=== PATIENT | male | born 1960 | race Caucasian/White ===

== ENCOUNTER 2023-08-18 10:47 | Emergency (ER) | payer OTHER, SELFPAY ==
[2023-08-18 10:54] VITALS: BP 144/84; PULSE 56; RESP 20; TEMP 36.7; O2SAT 99
--- NOTE | 2023-08-18 11:39 | ED.URI ---
HPI - URI/Sore Throat General Chief Complaint: Upper Respiratory Infection Stated Complaint: chest congestion/throat Time Seen by Provider: 08/18/23 11:39 Source: patient, RN notes reviewed and old records reviewed Mode of arrival: ambulatory Limitations: no limitations History of Present Illness HPI Narrative: 62-year-old male presents to [facility] with complaints of headache, sinus congestion, sinus pressure for the past 4 days with cough and yellowish phlegm for 1 month duration. Patient reports history of sinus problems and sinus infections in the past. Patient reports no fevers, chills or sweats or any body aches, states no shortness of breath. Patient did do ome Covid test in past 24 hours which was negative. Patient has not taken any OTC medications for his symptoms. MD elicited complaint: cough, sore throat, rhinorrhea, nasal congestion, sinus pain and other Pertinent past history: sinusitis Onset (ago): month(s) (1 month of cough with sinus 4-5 days) Pain scale (0-10): 6 Able to tolerate fluids by mouth: Yes Treatments prior to arrival: none Related Data Home Medications Medication Instructions Recorded Confirmed aspirin 325 mg tablet 325 mg PO DAILY 06/21/19 08/18/23 bisoprolol fumarate 5 mg tablet 5 mg PO DAILY 08/18/23 08/18/23 fluticasone propionate 50 2 spray intranasal DAILY 08/18/23 08/18/23 mcg/actuation nasal spray,suspension sertraline 50 mg tablet 50 mg PO DAILY 08/18/23 08/18/23 testosterone enanthate 75 mg/0.5 75 mg subcut WEEKLY 08/18/23 08/18/23 mL subcutaneous auto-injector (Xyosted) valsartan 160 1 tablet PO DAILY 08/18/23 08/18/23 mg-hydrochlorothiazide 12.5 mg tablet Allergies Allergy/AdvReac Type Severity Reaction Status Date / Time No Known Allergies Allergy Verified 08/18/23 10:53 Review of Systems Review of Systems: CONSTITUTIONAL: Denies malaise, chills, sweats, or fever. EYES: Denies visual changes, redness, or discharge. ENT: Reports rhinorrhea, congestion, sinus pain,no otalgia and positive sore throat. CARDIOVASCULAR: Denies chest pain, palpitations, or edema. RESPIRATORY: Reports cough which is productive? Denies dyspnea. GASTROINTESTINAL: Denies abdominal pain, nausea, vomiting, diarrhea SKIN: Denies rash or itching. MUSCULOSKELETAL: Denies myalgia. NEUROLOGIC: Reports headache. All systems reviewed & are unremarkable except as noted in HPI and below PMFSH Past Medical History Medical History (Updated 08/19/23 @ 12:30 by Darling Francis NP) Cancer of skin of right upper extremity Cancer of skin, face Depression History of sinus problem Hyperlipemia TIA (transient ischemic attack) Social History Social History (Updated 06/24/19 @ 19:09 by Darling Francis NP) Smoking status: Never smoker Living arrangements: with family Comments At time of signature, agree with nursing past medical, surgical, social and family history. There is no relevant family history pertinent to the presenting complaint Exam Narrative: GENERAL: Well-appearing, well-nourished, and in no acute distress. HEAD: Normocephalic EYES: PERRLA, conjunctivae clear ENT: Nares clear, turbinates edematous and erythematous, clear to light yellow discharge,sinus pressure. Mucous membranes moist. TM pearly saldana with dull light reflex bilaterally; no tragal tenderness. Oropharynx erythematous without lesions. Tonsils not enlarged and without exudate, no drooling, no hoarseness, no trismus, uvula midline.post nasal discharge NECK: Supple. No lymphadenopathy CHEST: Clear to auscultation, breath sounds equal. No wheezing, rhonchi, rales, or stridor. No respiratory distress, speaks in full sentences.cough productive yellowish phlegmSAO2 99% on room air HEART: Regular rate and rhythm. No murmur heard. SKIN: Warm, dry, no rash. NEURO: Alert and oriented x3. PSYCH: Normal mood and affect Course Course Emergency Course: Patient is aware of d
== END 2023-08-18 12:00 | disposition home or self-care (01) ==
PROVIDERS: Emergency Provider Registered Nurse; PCP Internal Medicine
DX: J01.40 Acute pansinusitis, unspecified (principal); R05.1 Acute cough; E78.5 Hyperlipidemia, unspecified; F32.A Depression, unspecified; Z86.73 Personal history of transient ischemic attack (TIA), and cerebral infarction without residual deficits; Z85.828 Personal history of other malignant neoplasm of skin; Z79.02 Long term (current) use of antithrombotics/antiplatelets
CPT/HCPCS: 99203; G0463